=== PATIENT | male | born 1945 | race Caucasian/White ===

== ENCOUNTER 2016-11-12 13:30 | Inpatient (IN) | payer MEDICARE ==
--- NOTE | 2016-11-12 13:46 | Emergency Department Record ---
History of Present Illness - General Chief Complaint: Cough Stated Complaint: COUGHING WITH SOB, CONGESTION Time Seen by Provider: 11/12/16 13:45 Source: Patient Mode of Arrival: Ambulatory Limitations: No limitations - History of Present Illness Initial Comments: The patient is here due to a 7 day hx of progressive cough, congestion and SOB. He denies any fever, chills, CP or AP. The patient has a long hx fo COPD and has had similar problems in the past. He is not on home O2. MD Complaint: Cough, Nasal congestion, Rhinorrhea Onset/Timin -: Week(s) Consistency: Constant - Related Data Home Medications Medication Instructions Recorded Confirmed Last Taken Allopurinol [Zyloprim] 100 mg PO DAILY 09/29/15 11/12/16 11/12/16 Aspirin [Ecotrin] 81 mg PO DAILY 09/29/15 11/12/16 11/12/16 Diltiazem HCl [Cardizem] 120 mg PO DAILY 09/29/15 11/12/16 11/12/16 Furosemide [Lasix] 40 mg PO DAILY 09/29/15 11/12/16 11/11/16 Albuterol Sulfate [Ventolin Hfa] 1 - 2 puff IH .EVERY 4-6 HOURS PRN 11/08/1511/12/16 Ca/D3/Mag Ox/Zinc/Blending Machine Operator/Charbel/Bor 2 each PO DAILY 11/08/15 11/12/16 11/12/16 [Calcium 600-Vit D3-Min Chew Tb] Digoxin [Lanoxin] 125 mcg PO DAILY 11/08/15 11/12/16 11/12/16 Tramadol HCl 50 mg PO Q8H 11/12/16 11/12/16 11/12/16 Previous Rx's Medication Instructions Recorded Amiodarone HCl [Cordarone] 200 mg PO ONCE #30 tablet 11/11/15 Ipratropium/Albuterol [Duoneb] 3 ml IH Q4H #10 ampul.neb. 11/11/15 Rivaroxaban [Xarelto] 20 mg PO QPM #30 tablet 11/11/15 Allergies Allergy/AdvReac Type Severity Reaction Status Date / Time No Known Drug Allergies Allergy Verified 11/12/16 13:42 Travel Screening - Travel/Exposure Within Last 30 Days Have you traveled within the last 30 days?: No Review of Systems Constitutional: Reports: Malaise. Denies: Chills, Fever Eyes: Denies: Eye discharge ENT: Reports: Congestion Respiratory: Reports: Cough, Dyspnea, Wheezes. Denies: Hemoptysis, Stridor Cardiovascular: Denies: Chest pain Endocrine: Reports: Fatigue Gastrointestinal: Denies: Diarrhea, Vomiting Genitourinary: Denies: Dysuria Musculoskeletal: Denies: Back pain Skin: Denies: Bruising Past Medical History - SOCIAL HISTORY Smoking Status: Former smoker Alcohol Use: Heavy Alcohol Use Comment: 5 drinks/day Drug Use: None - RESPIRATORY Hx Respiratory Disorders: Yes Hx Bronchitis: Yes Hx COPD: Yes - CARDIOVASCULAR Hx Cardio Disorders: Yes Hx Abnormal EKG: Yes Hx CHF: Yes Hx Edema: Yes Hx Hypertension: Yes Hx Irregular Heartbeat: Yes (Afib) Hx Pacemaker/Defib: Yes - NEURO Hx Neuro Disorders: No - GI Hx GI Disorders: Yes Hx GI Bleed: Yes Hx Rectal Bleeding: Yes Hx Ulcer: Yes Comment:: increase due to edema - Hx Genitourinary Disorders: No - ENDOCRINE Hx Endocrine Disorders: No Hx Diabetes: No Hx Thyroid Disease: No - MUSCULOSKELETAL Hx Musculoskeletal Disorders: No - PSYCH Hx Psych Problems: No - HEMATOLOGY/ONCOLOGY Hx Hematology/Oncology Disorders: No Family Medical History Any Significant Family History?: Yes Hx Alcohol Use: Children Hx Dementia: Grandparents Hx Heart Disease: Father Hx HTN: Father Hx Resp Disorders: Children Hx Stroke: Mother Physical Exam - General General Appearance: Alert, Oriented x3, Cooperative, No acute distress - Head Head exam: Atraumatic, Normocephalic, Normal inspection - Eye Eye exam: Normal appearance, PERRL - ENT Throat exam: Normal inspection. negative: Tonsillar erythema, Tonsillar exudate - Neck Neck exam: Normal inspection, Full ROM. negative: Lymphadenopathy, Meningismus , Tenderness - Respiratory Respiratory exam: Decreased breath sounds, Rhonchi, Wheezes. negative: Normal lung sounds bilaterally, Accessory muscle use, Prolonged expiratory - Cardiovascular Cardiovascular Exam: Irregular rhythm. negative: Regular rate, Normal rhythm - GI/Abdominal GI/Abdominal exam: Soft, Normal bowel sounds. negative: Tenderness - Extremities Extremities exam: Normal inspection, Full ROM, Normal capillary refill. negative: Tenderness - Neurological Neurological exam: Alert, Normal gait, Oriented X3. negative: Abnormal gait, Motor sensory deficit - Psychiatric Psychiatric exam: negative: Agitated, Anxious, Depressed Course Vital Signs 11/12/16 13:33 Temperature 98.1 F Pulse Rate 78 Respiratory 28 H Rate Blood Pressure 126/69 Pulse Ox 80 L - Reevaluation(s) Reevaluation #1: The patient is doing well. He does feel better on the oxygen and after the breathing tx's. I did discuss the case with him and did recommend hospital admission. Due to his cardiac enzymes being borderline I did consult Dr. Griggs (Cardiology) and he does think the patient can stay here at [facility] for treatment and further cardiac lab testing. I then did discuss the case with Kianna (CLOTILDE) and she accepts the patient for Dr. Dupont. 11/12/16 15:12 Reevaluation #2: The patient is feeling better at this time. His RR is improved and his lungs have increased aeration. He is able to speak in full sentences and his biox is low 90's on 3 Liters of O2. 11/12/16 16:20 Medical Decision Making - Data Complexity MDM Data: Labs Ordered and/or Reviewed, X-Ray Ordered and/or Reviewed, EKG Ordered and/or Reviewed - Lab Data Result diagrams: 11/12/16 13:50 11/12/16 13:59 - EKG Data -: EKG Interpreted by Ri EKG: No Acute Changes, Unchanged From Previous - Radiology Data Radiology results: Report reviewed (CXR: COPD with possible L lung infiltrate.) Disposition Disposition: Admit Clinical Impression: COPD exacerbation, Chronic atrial fibrillation, Hypoxia Decision to Admit: Admit from ER Decision to Admit Date: 11/12/16 Decision to Admit Time: 15:14 Accepting Physician: Kiah Time Discussed w/Accepting Physician: 15:14 Time of Disposition: 15:14
[2016-11-12] MEDS ORDERED: IPRATROPIUM/ALBUTEROL (0.5MG/3MG) NEB INH ONE ×2 (13:53→15:10)
[2016-11-12] MEDS ORDERED: METHYLPREDNISOLONE PF 125MG/VIAL IVP ONE (13:55)
[2016-11-12] MEDS: ALBUTEROL SULFATE (0.083%) 2.5 MG/3 ML NEB INH ONE (14:01)
[2016-11-12 14:09] LABS: HEMATOCRIT 46.1 % (42.0-52.0); HEMOGLOBIN 15.2 gm/dl (14.0-18.0); MEAN CELL VOLUME 98.1 fl (81-97); MEAN CORPUSCULAR HEMOGLOBIN 32.3 pg (27-33); MEAN PLATELET VOLUME 10.6 fl (7.4-10.4); PLATELET COUNT 182 K/uL (130-400); RED CELL DISTRIBUTION WIDTH 13.9 % (11.5-14.5); WHITE BLOOD COUNT W/O DIFF 7.2 K/uL (4.2-12.2)
[2016-11-12 14:21] LABS: INR 1.12; PARTIAL THROMBOPLASTIN TIME 31.3 SECONDS (24.5-39.1); PROTHROMBIN TIME (PATIENT) 12.7 SECONDS (9.5-12.1)
[2016-11-12 14:22] LABS: ANION GAP 13.5 (7-16); BLOOD UREA NITROGEN 18 mg/dL (9-20); CARBON DIOXIDE 27.5 mmol/L (22-30); CREATINE PHOSPHOKINASE 400 U/L (55-170); CREATININE 1.1 mg/dL (0.66-1.25); EST GLOMERULAR FILTRATION RATE > 60 ml/min; GLUCOSE,RANDOM 154 mg/dL (70-110)
[2016-11-12 14:32] LABS: PLATELET ESTIMATE NORMAL (NORMAL)
[2016-11-12] MEDS ORDERED: LEVOFLOXACIN/D5W 750 MG in DEXTROSE 1 BAG IVPB ONE (14:33)
[2016-11-12 14:34] LABS: CKMB 9.8 ug/L (0-6)
[2016-11-12 14:35] LABS: TROPONIN I 0.176 ng/mL (0.00-0.034)
[2016-11-12] MEDS ORDERED: FUROSEMIDE IV 40MG/4ML VIAL IVP ONE (14:37)
[2016-11-12] MEDS ORDERED: ASPIRIN 325 MG TABLET PO ONE (15:23)
[2016-11-12] MEDS ORDERED: ACETAMINOPHEN 500 MG TABLET PO PRN (16:33)
[2016-11-12] MEDS: TRAMADOL HCL 50 MG TABLET PO SCH (16:33)
[2016-11-12] MEDS ORDERED: AMIODARONE HCL 200 MG TABLET PO SCH (16:33)
[2016-11-12] MEDS: RIVAROXABAN 20 MG TABLET PO SCH (18:05)
[2016-11-12] MEDS: IPRATROPIUM/ALBUTEROL (0.5MG/3MG) NEB INH PRN (21:57)
[2016-11-12 22:38] LABS: CKMB 9.9 ug/L (0-6); TROPONIN I 0.106 ng/mL (0.00-0.034)
[2016-11-12 23:12] LABS: CKMB RELATIVE INDEX 2.4 % (0-4)
[2016-11-13] MEDS: IPRATROPIUM/ALBUTEROL (0.5MG/3MG) NEB INH PRN ×5 (01:45→20:38)
[2016-11-13] MEDS: TRAMADOL HCL 50 MG TABLET PO SCH ×2 (05:00→10:16)
[2016-11-13] MEDS: ALBUTEROL SULFATE (0.083%) 2.5 MG/3 ML NEB INH ONE ×2 (06:12→06:13)
[2016-11-13 06:54] LABS: CKMB 7.9 ug/L (0-6)
--- NOTE | 2016-11-13 07:28 | RADIOLOGY REPORT ---
EXAM: CHEST, TWO VIEWS HISTORY: COUGH. TECHNIQUE: Two views of the chest were obtained. Comparison: 06/30/16. FINDINGS: There is a single lead left chest pacemaker. There is stable appearance of the cardiomediastinal silhouette. Coarsened interstitial markings are present within the lungs likely related to scarring/fibrosis. The lungs are hyperaerated consistent with emphysematous change/COPD. There does appear to be subtle interval increased streaky opacities within the left lung base which could relate to atelectasis or developing infiltrate. Mild degenerative changes in the thoracic spine. IMPRESSION: 1. SUGGESTION OF MILD LEFT BASILAR ATELECTASIS OR DEVELOPING INFILTRATE. 2. COPD. JOB NUMBER: [id number] MTDD
[2016-11-13] MEDS ORDERED: TRAMADOL HCL 50 MG TABLET PO PRN (09:10)
--- NOTE | 2016-11-13 09:50 | History & Physical ---
History of Present Illness - Date of Service Date of Service for History & Physical: 11/13/16 - History of Present Illness Admitting Diagnosis: 1. COPD Exacerbation with Hypoxia History of Present Illness: 70yo male presented to ED with 15 day history of worsening SOB with increasing cough. Patient has a past medical history of COPD, CHF, chronic atrial fibrillation, pacemaker, and HTN. Patient presented to the ED last night with increasing SOB. He says this gradually started about 2 wees ago but really progressed over the past 24 hours. He is coughing up thick sputum which he says is actually baseline for him. He reported some chills but no fever. He decided to come to the ED because he began having a difficult time breathing. While in the ED, patient was found to have a room air oxygen saturation of 80%. He was started on supplemental oxygen at 3L with improvements to 90%. He received 3 duoneb breathing treatments with improvement in his TONA. He had a CXR that showed a mid left basilar atelectasis vs infiltrate along with emphysematous changes. EKG showed atrial fibrillation with ventricular rate of 72bpm along with RBB block which was unchanged from previous EKG. CPK, cKMB and troponin returned elevated but patient was asymptomatic. Dr. Griggs was contacted and recommended trending the labs with transfer if further elevation. Patient was started on levaquin 500mg IV, given solumedrol 125mg IV and admitted for COPD exacerbation. 11/13/16- Patient reports feeling much better today. He is still feeling more SOB than baseline but says it has improved significantly since he arrived. He reports about baseline cough and sputum production. He continues to deny any chest pain or pressure. He has been following with Dr. Thacker of [facility] cardiology and had a pacemaker placed this year and was started on intermodal customer service anticoagulation for chronic afib. He denies any swelling in his extremities. PCP: Julio Travel Screening - Travel/Exposure Within Last 30 Days Have you traveled within the last 30 days?: No - Travel/Exposure Within Last Year Have you traveled outside the [place] in the last year?: No - Additonal Travel Details Have you been exposed to anyone with a communicable illness?: No - Travel Symptoms Symptom Screening: None Review of Systems Constitutional: Reports: Malaise. Denies: Chills, Fever Eyes: Denies: Eye discharge ENT: Reports: Congestion Respiratory: Reports: Cough, Dyspnea, Wheezes. Denies: Hemoptysis, Stridor Cardiovascular: Denies: Chest pain Endocrine: Reports: Fatigue Gastrointestinal: Denies: Diarrhea, Vomiting Genitourinary: Denies: Dysuria Musculoskeletal: Denies: Back pain Skin: Denies: Bruising Past Medical History - SOCIAL HISTORY Smoking Status: Former smoker Alcohol Use: Heavy Alcohol Use Comment: 5 drinks/day Drug Use: None - RESPIRATORY Hx Respiratory Disorders: Yes Hx Bronchitis: Yes Hx COPD: Yes - CARDIOVASCULAR Hx Cardio Disorders: Yes Hx Abnormal EKG: Yes Hx CHF: Yes Hx Edema: Yes Hx Hypertension: Yes Hx Irregular Heartbeat: Yes (Afib) Hx Pacemaker/Defib: Yes - NEURO Hx Neuro Disorders: No - GI Hx GI Disorders: Yes Hx GI Bleed: Yes Hx Rectal Bleeding: Yes Hx Ulcer: Yes Comment:: increase due to edema - Hx Genitourinary Disorders: No - ENDOCRINE Hx Endocrine Disorders: No Hx Diabetes: No Hx Thyroid Disease: No - MUSCULOSKELETAL Hx Musculoskeletal Disorders: No - PSYCH Hx Psych Problems: No - HEMATOLOGY/ONCOLOGY Hx Hematology/Oncology Disorders: No Family Medical History Any Significant Family History?: Yes Hx Alcohol Use: Children Hx Dementia: Grandparents Hx Heart Disease: Father Hx HTN: Father Hx Resp Disorders: Children Hx Stroke: Mother H&P Meds/Allergies - Allergies Allergies: Allergies Allergy/AdvReac Type Severity Reaction Status Date / Time No Known Drug Allergies Allergy Verified 11/12/16 13:42 - Home Medications Home Medications Medication Instructions Recorded Confirmed Last Taken Allopurinol [Zyloprim] 100 mg PO DAILY 09/29/15 11/12/16 11/12/16 Aspirin [Ecotrin] 81 mg PO DAILY 09/29/15 11/12/16 11/12/16 Diltiazem HCl [Cardizem] 120 mg PO DAILY 09/29/15 11/12/16 11/12/16 Furosemide [Lasix] 40 mg PO DAILY 09/29/15 11/12/16 11/11/16 Albuterol Sulfate [Ventolin Hfa] 1 - 2 puff IH .EVERY 4-6 HOURS PRN 11/08/1511/12/16 Ca/D3/Mag Ox/Zinc/Aircraft Servicer/Charbel/Bor 2 each PO DAILY 11/08/15 11/12/16 11/12/16 [Calcium 600-Vit D3-Min Chew Tb] Digoxin [Lanoxin] 125 mcg PO DAILY 11/08/15 11/12/16 11/12/16 Tramadol HCl 50 mg PO TID PRN 11/12/16 11/13/16 11/12/16 Previous Rx's Medication Instructions Recorded Amiodarone HCl [Cordarone] 200 mg PO ONCE #30 tablet 11/11/15 Ipratropium/Albuterol [Duoneb] 3 ml IH Q4H #10 ampul.neb. 11/11/15 Rivaroxaban [Xarelto] 20 mg PO QPM #30 tablet 11/11/15 - Active Medications Active Medications: Current Medications Acetaminophen (Tylenol 500mg Tab) 500 mg PO Q6H PRN PRN Reason: PAIN/TEMP Albuterol/Ipratropium (Duoneb) 3 ml INH RESP.Q4H PRN PRN Reason: Wheezing Last Admin: 11/13/16 06:15 Dose: 3 ml Allopurinol (Zyloprim) 100 mg PO DAILY [facility] Amiodarone HCl (Pacerone) 200 mg PO ONCE [facility] Aspirin (Ecotrin (Ec)) 81 mg PO DAILY [facility] Digoxin (Lanoxin) 125 mcg PO DAILY [facility] Diltiazem HCl (Cardizem Cd) 120 mg PO DAILY [facility] Furosemide (Lasix) 40 mg PO DAILY [facility] Levofloxacin/Dextrose 500 mg/ (Glucose) 100 mls @ 125 mls/hr IVPB Q24H [facility] Stop: 11/18/16 15:31 Methylprednisolone Sodium Succinate (Solu-Medrol) 60 mg IVP DAILY [facility] Rivaroxaban (Xarelto) 20 mg PO QPM [facility] Last Admin: 11/12/16 18:05 Dose: 20 mg Tramadol HCl (Ultram) 50 mg PO TID PRN PRN Reason: Pain - General Physical Exam - Vital Signs Vital Signs: Vital Signs - Last 24 Hrs Temp Pulse Pulse Resp BP Pulse Ox 11/13/16 08:00 98.3 F 80 22 118/71 93 L 11/13/16 06:16 66 24 93 L 11/13/16 04:00 95.0 F L 77 28 H 117/65 97 11/13/16 01:46 80 24 94 L 11/13/16 00:50 96.9 F L 58 L 28 H 117/67 92 L 01/15/17 21:58 70 26 H 94 L 11/12/16 21:00 28 H 11/12/16 18:33 97.7 F 86 44 H 127/71 90 L 11/12/16 17:07 77 44 H 11/12/16 16:33 98.3 F 77 44 H 131/72 90 L - General General Appearance: Alert, Oriented x3, Cooperative, No acute distress Limitations: No limitations - Head Head exam: Atraumatic, Normocephalic, Normal inspection - Eye Eye exam: Normal appearance, PERRL - ENT Throat exam: Normal inspection. negative: Tonsillar erythema, Tonsillar exudate - Neck Neck exam: Normal inspection, Full ROM. negative: Lymphadenopathy, Meningismus , Tenderness - Respiratory Respiratory exam: Decreased breath sounds (throughout). negative: Normal lung sounds bilaterally, Accessory muscle use, Prolonged expiratory, Respiratory distress, Wheezes - Cardiovascular Cardiovascular Exam: Regular rate, Irregular rhythm, Other (pacemaker). negative: Normal rhythm - GI/Abdominal GI/Abdominal exam: Soft, Normal bowel sounds. negative: Tenderness - Extremities Extremities exam: Normal inspection, Full ROM, Normal capillary refill. negative: Tenderness - Neurological Neurological exam: Alert, Normal gait, Oriented X3. negative: Abnormal gait, Motor sensory deficit - Psychiatric Psychiatric exam: negative: Agitated, Anxious, Depressed Results - Labs Result Diagrams: 11/13/16 06:15 11/13/16 06:15 Labs Last 24 Hours: Laboratory Results - last 24 hr 11/12/16 11/12/16 11/13/16 22:00 22:05 06:15 Creatine Kinase 400 H 261 H CK-MB (CK-2) Cancelled 9.9 H 7.9 H CK-MB (CK-2) Rel Index 2.40 3.00 Troponin I 0.106 H 11/13/16 06:15 Creatine Kinase CK-MB (CK-2) CK-MB (CK-2) Rel Index Troponin I 0.075 H - Imaging and Cardiology Chest x-ray Status: Report reviewed (mi left basilar atelectasis vs infiltrate) VTE H&P Assessment - Risk for VTE Risk for VTE: No Risk Level: Low Risk Assessment Date: 11/13/16 Risk Assessment Time: 22:37 VTE Orders Placed or Will Be Placed: No VTE Reason for No Prophylaxis: Not Indicated (patient on intermodal customer service anticoagulation therapy) Plan - Inpatient Certification Inpatient Certification: Admit to inpatient care: Based on my medical assessment, after consideration of patient's risk factors (age, co-morbidities and patient presenting symptoms and acuity), I expect that this patient will remain in the hospital greater than or equal to two midnights and that the services needed warrant inpatient care because: Patient Risk Factors: [age, COPD exacerbation, chronic atrial fibrillation] Estimated length of stay: [48-72 hourse] The patient may reasonably be expected to be discharged or transferred to a hospital within 96 hours after admission to [facility]. Services needed: [IV antibiotics, IV steroids] Post hospital care (if known): [] I certify that my determination is in accordance with my understanding of Medicare requirements for reasonable and necessary inpatient services. 11/13/16 14:44 - Detailed Diagnosis and Plan (1) COPD exacerbation Current Visit: Yes Status: Acute Base Code: J44.1 - CHRONIC OBSTRUCTIVE PULMONARY DISEASE W (ACUTE) EXACERBATION Priority: High Comment: 11/13/16- CXR showed mid left basilar atelectasis vs infiltrate and emphysematous changes. WBC count wnl range. Patient is afebrile. No blood cultures obtained prior to abx intitation in ED. -Will continue levaquin 500mg IV q24H for coverage of possible infiltrate seen on CXR -Continue solumedrol 60mg IV daily -continue supplemental O2 -Repeat labs qam (2) Hypoxia Current Visit: Yes Status: Acute Base Code: R09.02 - HYPOXEMIA Comment: 11/13/16- Oxygen saturation of 80% on RA upon presentation improved to 93% on 2L. Most likely cause is COPD exacerbation. Patient is on alf anticoagulation therapy for afib so PE is unlikely. -continue duoneb q4H prn SOB -continue supplemental Oxygen via NC to keep sats >92% -Will likely need home oxygen qualifier closer to discharge (3) Elevation of cardiac enzymes Current Visit: Yes Status: Acute Base Code: R74.8 - ABNORMAL LEVELS OF OTHER SERUM ENZYMES Comment: 11/13/16- Improving. Dr. Griggs was contacted while patient was in ED. he did not feel elevated CE were due to myocardial infarct and recommending trending the labs with transfer if any worsening. Patient remains asymtpomatic, denying any chest pain. His Troponin is down from 0.176 to 0.06 today. Repeat EKG this morning was unchanged from previous. -Will get one more set of labs tomorrow morning -Patient will likely need outpatient cardiology follow up with Dr. Thacker (4) Chronic atrial fibrillation Current Visit: Yes Status: Acute Base Code: I48.2 - CHRONIC ATRIAL FIBRILLATION Comment: 11/13/16-stable. Patient has pacemaker placed and is on alf anticoagulation therapy. -Will continue home medications (5) Full code status Current Visit: Yes Status: Acute Base Code: Z78.9 - OTHER SPECIFIED HEALTH STATUS Comment: 11/13/16- patient is full code (6) DVT prophylaxis Current Visit: No Status: Acute Base Code: [id number] - Comment: 11/13/16- Patient currently on xarelto 20mg qhs -will continue xarelto 20mg qhs -will add SCD's while in bed -encourage ambulation as tolerating
[2016-11-13 10:01] LABS: HEMATOCRIT 43.7 % (42.0-52.0); HEMOGLOBIN 14.7 gm/dl (14.0-18.0); MEAN CELL VOLUME 99.1 fl (81-97); MEAN CORPUSCULAR HEMOGLOBIN 33.3 pg (27-33); MEAN CORPUSCULAR HGB CONC 33.6 g/dl (32-36); PLATELET COUNT 178 K/uL (130-400); RED BLOOD COUNT 4.41 M/uL (4.40-5.70); RED CELL DISTRIBUTION WIDTH 13.8 % (11.5-14.5); WHITE BLOOD COUNT W/O DIFF 7.4 K/uL (4.2-12.2)
[2016-11-13 10:06] LABS: ALB/GLOB RATIO 1.3 (1.1-1.8); ALKALINE PHOSPHATASE 68 U/L (38-126); ALT/SGPT 57 U/L (21-72); ANION GAP 14.6 (7-16); AST/SGOT 60 U/L (17-59); BLOOD UREA NITROGEN 23 mg/dL (9-20); CARBON DIOXIDE 28.4 mmol/L (22-30); EST GLOMERULAR FILTRATION RATE > 60 ml/min; GLUCOSE,RANDOM 188 mg/dL (70-110); TOTAL PROTEIN 7.1 gm/dL (6.3-8.2)
[2016-11-13] MEDS: ALLOPURINOL 100 MG TAB PO SCH (10:20)
[2016-11-13] MEDS: DIGOXIN 125 MCG TABLET PO SCH (10:21)
[2016-11-13] MEDS: ASPIRIN 81 MG TABEC PO SCH (10:21)
[2016-11-13] MEDS: DILTIAZEM HCL 120 MG ER CAPSULE PO SCH (10:21)
[2016-11-13] MEDS: FUROSEMIDE 40 MG TABLET PO SCH (10:21)
[2016-11-13] MEDS: METHYLPREDNISOLONE PF 125MG/VIAL IVP SCH (10:22)
[2016-11-13] MEDS: AMIODARONE HCL 200 MG TABLET PO SCH (12:05)
[2016-11-13] MEDS: LEVOFLOXACIN 500MG IVPB 500 MG in DEXTROSE 1 BAG IVPB SCH (16:54)
[2016-11-13] MEDS: RIVAROXABAN 20 MG TABLET PO SCH (16:57)
[2016-11-14] MEDS: IPRATROPIUM/ALBUTEROL (0.5MG/3MG) NEB INH PRN ×4 (06:19→21:28)
[2016-11-14 07:01] LABS: ALB/GLOB RATIO 1.2 (1.1-1.8); ALBUMIN 3.5 gm/dL (3.5-5.0); BLOOD UREA NITROGEN 26 mg/dL (9-20); CREATININE 0.9 mg/dL (0.66-1.25); EST GLOMERULAR FILTRATION RATE > 60 ml/min; GLUCOSE,RANDOM 144 mg/dL (70-110); TOTAL PROTEIN 6.5 gm/dL (6.3-8.2)
[2016-11-14 07:02] LABS: ALKALINE PHOSPHATASE 59 U/L (38-126); ALT/SGPT 49 U/L (21-72); AST/SGOT 38 U/L (17-59); TROPONIN I 0.061 ng/mL (0.00-0.034)
[2016-11-14 07:11] LABS: HEMATOCRIT 43.6 % (42.0-52.0); MEAN CELL VOLUME 100.5 fl (81-97); MEAN CORPUSCULAR HGB CONC 32.1 g/dl (32-36); MEAN PLATELET VOLUME 10.8 fl (7.4-10.4); PLATELET COUNT 215 K/uL (130-400); RED BLOOD COUNT 4.34 M/uL (4.40-5.70); RED CELL DISTRIBUTION WIDTH 13.8 % (11.5-14.5)
[2016-11-14 07:17] LABS: MEAN CORPUSCULAR HEMOGLOBIN 32.2 pg (27-33)
[2016-11-14 07:40] LABS: PLATELET ESTIMATE NORMAL (NORMAL)
[2016-11-14] MEDS: ALLOPURINOL 100 MG TAB PO SCH (08:59)
[2016-11-14] MEDS: DIGOXIN 125 MCG TABLET PO SCH (08:59)
[2016-11-14] MEDS: AMIODARONE HCL 200 MG TABLET PO SCH (08:59)
[2016-11-14] MEDS: METHYLPREDNISOLONE PF 125MG/VIAL IVP SCH ×2 (09:00→18:00)
[2016-11-14] MEDS: ASPIRIN 81 MG TABEC PO SCH (09:01)
[2016-11-14] MEDS: DILTIAZEM HCL 120 MG ER CAPSULE PO SCH (09:01)
[2016-11-14] MEDS: FUROSEMIDE 40 MG TABLET PO SCH (09:01)
[2016-11-14] MEDS ORDERED: SODIUM CHLORIDE 7% FOR INHALATION 4 ML NEB INH ONE (10:30)
[2016-11-14] MEDS: LEVOFLOXACIN 500MG IVPB 500 MG in DEXTROSE 1 BAG IVPB SCH (15:44)
[2016-11-14] MEDS: RIVAROXABAN 20 MG TABLET PO SCH (17:59)
[2016-11-14] MEDS: SODIUM CHLORIDE 7% FOR INHALATION 4 ML NEB INH SCH (21:28)
[2016-11-15] MEDS: METHYLPREDNISOLONE PF 125MG/VIAL IVP SCH (05:41)
[2016-11-15] MEDS ORDERED: 0.9 % SODIUM CHLORIDE 10ML SYR IVP PRN (05:43)
[2016-11-15] MEDS: IPRATROPIUM/ALBUTEROL (0.5MG/3MG) NEB INH PRN ×2 (05:54→19:11)
[2016-11-15] MEDS: SODIUM CHLORIDE 7% FOR INHALATION 4 ML NEB INH SCH ×3 (05:54→19:15)
[2016-11-15 06:18] LABS: BASO % 0.2 % (0-6); HEMATOCRIT 42.6 % (42.0-52.0); HEMOGLOBIN 14.1 gm/dl (14.0-18.0); LYMPH % 5.3 % (16-45); MEAN CELL VOLUME 99.8 fl (81-97); MEAN CORPUSCULAR HGB CONC 33.1 g/dl (32-36); MEAN PLATELET VOLUME 10.6 fl (7.4-10.4); MONO % 7.3 % (0-9); PLATELET COUNT 232 K/uL (130-400); RED BLOOD COUNT 4.27 M/uL (4.40-5.70); RED CELL DISTRIBUTION WIDTH 13.8 % (11.5-14.5); WHITE BLOOD COUNT W/O DIFF 13.1 K/uL (4.2-12.2)
[2016-11-15 06:30] LABS: ALB/GLOB RATIO 1.3 (1.1-1.8); ALBUMIN 3.7 gm/dL (3.5-5.0); ALKALINE PHOSPHATASE 53 U/L (38-126); ALT/SGPT 55 U/L (21-72); ANION GAP 10.1 (7-16); AST/SGOT 34 U/L (17-59); BILIRUBIN,TOTAL 0.42 mg/dL (0.2-1.3); BLOOD UREA NITROGEN 33 mg/dL (9-20); CARBON DIOXIDE 30.9 mmol/L (22-30); CREATININE 0.9 mg/dL (0.66-1.25); EST GLOMERULAR FILTRATION RATE > 60 ml/min; GLUCOSE,RANDOM 148 mg/dL (70-110); TOTAL PROTEIN 6.5 gm/dL (6.3-8.2)
[2016-11-15] MEDS: ASPIRIN 81 MG TABEC PO SCH (10:22)
[2016-11-15] MEDS: DILTIAZEM HCL 120 MG ER CAPSULE PO SCH (10:22)
[2016-11-15] MEDS: ALLOPURINOL 100 MG TAB PO SCH (10:22)
[2016-11-15] MEDS: AMIODARONE HCL 200 MG TABLET PO SCH (10:22)
[2016-11-15] MEDS: DIGOXIN 125 MCG TABLET PO SCH (10:23)
[2016-11-15] MEDS ORDERED: PREDNISONE 20 MG TAB PO ONE (13:21)
[2016-11-15] MEDS ORDERED: METHYLPREDNISOLONE PF 125MG/VIAL IVP SCH (14:00)
[2016-11-15] MEDS: LEVOFLOXACIN 500MG IVPB 500 MG in DEXTROSE 1 BAG IVPB SCH (15:10)
[2016-11-15] MEDS: RIVAROXABAN 20 MG TABLET PO SCH (17:19)
[2016-11-15] MEDS: IPRATROPIUM/ALBUTEROL (0.5MG/3MG) NEB INH SCH (23:00)
[2016-11-16] MEDS: SODIUM CHLORIDE 7% FOR INHALATION 4 ML NEB INH SCH ×2 (04:08→10:10)
[2016-11-16] MEDS: IPRATROPIUM/ALBUTEROL (0.5MG/3MG) NEB INH SCH ×3 (05:39→17:16)
[2016-11-16] MEDS ORDERED: LEVOFLOXACIN 500 MG TABLET PO SCH (06:00)
[2016-11-16 06:41] LABS: BLOOD UREA NITROGEN 31 mg/dL (9-20); CREATININE 0.9 mg/dL (0.66-1.25); EST GLOMERULAR FILTRATION RATE > 60 ml/min; GLUCOSE,RANDOM 126 mg/dL (70-110)
[2016-11-16 06:42] LABS: ANION GAP 11.8 (7-16); CARBON DIOXIDE 29.2 mmol/L (22-30)
--- NOTE | 2016-11-16 08:24 | Discharge Note ---
Discharge Note - Date Date of Discharge Note: 11/16/16 Disposition: Home, Self-Care Condition: (1) Good Additional Instructions: FOLLOW UP WITH dR. Corral IN 7-10 DAYS levaquin 500 mg daily for 7 days prednisone taper starting at 40 mg per day for 3 days than 30 mg per day for 3 days than 20 mg per day for 3 days than 10 mg per day for 3 days.(using 10 mg pills) oxygen therapy at home salin neb twice a day to help bring up mucous duo neb every 4 hours while awake Prescriptions: Ipratropium/Albuterol [Duoneb] 3 ml INH RESP.Q4H.WA #120 ampul.neb Ipratropium/Albuterol [Duoneb] 3 ml IH Q4H #120 ampul.neb. Sodium Chloride 7% For INH [Hyper-Shawn] 4 ml INH BID #60 vial.neb Levofloxacin [Levaquin] 500 mg PO DAILYFLUOR #7 tablet Prednisone [Prednisone 10Mg] 10 mg PO ASDIR #30 tab Forms: Patient Portal Access
[2016-11-16] MEDS ORDERED: PREDNISONE 20 MG TAB PO SCH (08:30)
[2016-11-16] MEDS: AMIODARONE HCL 200 MG TABLET PO SCH (10:19)
[2016-11-16] MEDS: DILTIAZEM HCL 120 MG ER CAPSULE PO SCH (10:19)
[2016-11-16] MEDS: DIGOXIN 125 MCG TABLET PO SCH (10:19)
[2016-11-16] MEDS: ALLOPURINOL 100 MG TAB PO SCH (10:19)
[2016-11-16] MEDS: ASPIRIN 81 MG TABEC PO SCH (10:20)
--- NOTE | 2016-11-16 15:09 | Discharge Summary ---
DATE OF DISCHARGE: 11/16/16 AT 8:00 A.M. DISCHARGE DIAGNOSES: 1. ACUTE BRONCHITIS. 2. ACUTE EXACERBATION OF COPD. 3. HYPOXIA MOST LIKELY REQUIRING HOME OXYGEN. WE WILL SEND HIM HOME WITH OXYGEN THEY ARE GOING TO SEE IF HE QUALIFIES ON THE DAY OF DISCHARGE. 4. DEHYDRATION. 5. CHRONIC ATRIAL FIBRILLATION. 6. CHRONICALLY ELEVATED TROPONIN-I. ATTENDING PHYSICIAN: GRANT STOVER D.O. REASON FOR HOSPITALIZATION: DYSPNEA, COUGH, AND CONGESTION: The patient was progressively worse over seven days prior to coming to the Admission with congestion, cough, and difficulty breathing. He has had a long history of COPD, however, has never had to use oxygen at home. He was admitted to the hospital by Dr. Cross, initially seen by Kianna Yoo and Dr. Sharif and then I took over on 11/14/16 because of the change of coverage. SIGNIFICANT FINDINGS: Chest x-ray showing COPD, mild left basilar atelectasis or developing infiltrate. EKG showing atrial fibrillation, right bundle branch block, and nonspecific ST/T wave changes, occasional paced rhythm. He has a pacemaker and he is on Amiodarone. LABORATORY: His initial WBC was 7,200, hemoglobin was 15.2, his hemoglobin dropped down to 14.1 on discharge, platelet counts are normal at 232, segs are 82, lymphs are 6, monos are 5. His last set of electrolytes; potassium is 4.6, BUN is 31, creatinine is 0.9, sugar has gone up a little bit because of the Prednisone and Solu-Medrol therapy. His troponin-I's were a little bit high when he came into the E.R. at 0.106. Dr. Juan M Johnston was consulted and he said just trend them if they go down and not to worry but otherwise if they go up to call him if they did trend down. His CK-MB was a little bit elevated but the index was normal and his pro-natriuretic peptide was 3,950. Digoxin level was 1.2 on the day of discharge. THERAPY PROVIDED: The patient was placed on IV Levaquin, given DuoNeb treatments every four hours, cautious hydration, oxygen therapy, and IV Solu- Medrol switched over to oral Prednisone going home on Prednisone at 40 mg a day for three days, then 30 mg a day for three days, then 20 mg a day for three days , then 10 mg a day for three days. 10 mg pills will be dispensed. HOSPITAL COURSE: Gradually improved but is requiring oxygen therapy. CONDITION AT DISCHARGE: Improved but guarded because of his severe COPD, atrial fibrillation, and comorbid conditions. DISCHARGE INSTRUCTIONS: Follow-up with Dr. Fay in 7-10 days. Oxygen therapy after he qualifies. That will be set up on the day of discharge. Tramadol 50 mg every eight hours prn. He has not been using that in the hospital. DuoNeb every four hours while awake. Diltiazem 120 mg every day. Xarelto 20 mg at bedtime. We will stop the Lasix. Digoxin 0.125 every day. Aspirin 81 mg every day. Amiodarone 200 mg every day. Allopurinol 100 mg every day. Levaquin 500 mg every day for seven days. Hyper-Shawn 4 mL of 7% saline solution nebulized twice a day to help mobilize the mucus in his lungs. This is a new script for him. Prednisone 10 mg pills, four pills a day for three days, then three pills a day for three days, two pills a day for three days, then one pill a day for three days. Grant Stover D.O. Date & Time cc: Dr. Fay JOB NUMBER: [id number] MTDD
== END 2016-11-16 14:00 | disposition home or self-care (01) | DRG 192 ==
LOC: ER 13:30 → MEDSURG 16:18
PROVIDERS: ADMIT Family Medicine; ATTEND Emergency Medicine
DX: J44.0 Chronic obstructive pulmonary disease with (acute) lower respiratory infection (principal); J20.9 Acute bronchitis, unspecified; J44.1 Chronic obstructive pulmonary disease with (acute) exacerbation; R09.02 Hypoxemia; R74.8 Abnormal levels of other serum enzymes; I48.2 Chronic atrial fibrillation; Z78.9 Other specified health status; Z95.0 Presence of cardiac pacemaker; E86.0 Dehydration
CPT/HCPCS: 93041; 99285 ×2; 94760; 96365; 82550; 85730; 85610; 82553; 84484; 80048; 80162; 85027; 83880; 71020; J1956; 80053; 93005; 93010; 94620; 94640; 94761; 99223; 99233; 99239; J1940; J2930; J7512; J7613

== ENCOUNTER 2017-02-12 18:10 | Emergency (ER) | payer MEDICARE ==
[2017-02-12] MEDS ORDERED: IPRATROPIUM/ALBUTEROL (0.5MG/3MG) NEB INH ONE ×2 (18:19→18:20)
[2017-02-12] MEDS ORDERED: METHYLPREDNISOLONE PF 125MG/VIAL IVP ONE (18:21)
--- NOTE | 2017-02-12 18:27 | Emergency Department Record ---
History of Present Illness - General Chief Complaint: Shortness of breath Stated Complaint: TONA/COPD Time Seen by Provider: 02/12/17 18:20 Source: Patient Mode of Arrival: Wheelchair Limitations: Physical limitation (Dyspnea) - History of Present Illness Initial Comments: 71 yo male with a history of COPD presents to ED in respiratory distress, unable to speak. Patient's reports progressively worsening symptoms for the past 3-4 days, productive cough symptoms, subjective fever. reports history of atrial fibrillation and "bad heart valve". Patient is on Xarelto for his atrial fibrillation, s/p pacemaker. MD Complaint: Shortness of breath Onset/Timin -: Days(s) Severity: Severe Consistency: Constant Improves With: Nothing Worsens With: Nothing Known History Of: COPD Context: Recent URI Treatments Prior to Arrival: Bronchodilator - Related Data Home Oxygen Therapy: No (only at night) Home Medications Medication Instructions Recorded Confirmed Last Taken Allopurinol [Zyloprim] 100 mg PO DAILY 09/29/15 02/12/17 11/12/16 Aspirin [Ecotrin] 81 mg PO DAILY 09/29/15 02/12/17 11/12/16 Diltiazem HCl [Cardizem] 120 mg PO DAILY 09/29/15 02/12/17 11/12/16 Albuterol Sulfate [Ventolin Hfa] 1 - 2 puff IH .EVERY 4-6 HOURS PRN 11/08/1511/12/16 Ca/D3/Mag Ox/Zinc/Funeral Attendant/Charbel/Bor 2 each PO DAILY 11/08/15 02/12/17 11/12/16 [Calcium 600-Vit D3-Min Chew Tb] Digoxin [Lanoxin] 125 mcg PO DAILY 11/08/15 02/12/17 11/12/16 Tramadol HCl 50 mg PO TID PRN 11/12/16 02/12/17 11/12/16 Previous Rx's Medication Instructions Recorded Amiodarone HCl [Cordarone] 200 mg PO ONCE #30 tablet 11/11/15 Rivaroxaban [Xarelto] 20 mg PO QPM #30 tablet 11/11/15 Acetaminophen [Tylenol 500Mg Tab] 500 mg PO Q6H PRN #0 tablet 11/16/16 Aspirin Enteric-Coated [Ecotrin 81 mg PO DAILY tabec 01/19/17 (EC)] Ipratropium/Albuterol [Duoneb] 3 ml IH Q4H #120 ampul.neb. 11/16/16 Ipratropium/Albuterol [Duoneb] 3 ml INH RESP.Q4H.WA #120 ampul.neb 11/16/16 Sodium Chloride 7% For INH 4 ml INH BID #60 vial.neb 11/16/16 [Hyper-Shawn] Allergies Allergy/AdvReac Type Severity Reaction Status Date / Time No Known Drug Allergies Allergy Verified 02/12/17 18:27 Review of Systems ROS unobtainable: Other (due to respiratory distress) Past Medical History - SOCIAL HISTORY Smoking Status: Former smoker Alcohol Use Comment: 5 drinks/day Drug Use: None - RESPIRATORY Hx Respiratory Disorders: Yes Hx Bronchitis: Yes Hx COPD: Yes - CARDIOVASCULAR Hx Cardio Disorders: Yes Hx Abnormal EKG: Yes Hx CHF: Yes Hx Edema: Yes Hx Hypertension: Yes Hx Irregular Heartbeat: Yes (Afib) Hx Pacemaker/Defib: Yes - NEURO Hx Neuro Disorders: No - GI Hx GI Disorders: Yes Hx GI Bleed: Yes Hx Rectal Bleeding: Yes Hx Ulcer: Yes Comment:: increase due to edema - Hx Genitourinary Disorders: No - ENDOCRINE Hx Endocrine Disorders: No Hx Diabetes: No Hx Thyroid Disease: No - MUSCULOSKELETAL Hx Musculoskeletal Disorders: No - PSYCH Hx Psych Problems: No - HEMATOLOGY/ONCOLOGY Hx Hematology/Oncology Disorders: No Family Medical History Hx Alcohol Use: Children Hx Dementia: Grandparents Hx Heart Disease: Father Hx HTN: Father Hx Resp Disorders: Children Hx Stroke: Mother Physical Exam - General General Appearance: Alert, Oriented x3, Cooperative, Severe distress, Other ( Cybnaotic appearing) Limitations: Physical limitation (Dyspnea) - Head Head exam: Atraumatic, Normocephalic, Normal inspection Head exam detail: negative: Abrasion, Contusion, Virk's sign, General tenderness, Hematoma, Laceration - Eye Eye exam: Normal appearance. negative: Conjunctival injection, Periorbital swelling, Periorbital tenderness, Scleral icterus - ENT Ear exam: negative: Auricular hematoma, Auricular trauma Nasal Exam: negative: Active bleeding, Discharge, Dried blood, Foreign body Mouth exam: negative: Drooling, Laceration, Muffled voice, Tongue elevation - Neck Neck exam: Normal inspection. negative: Meningismus, Tenderness - Respiratory Respiratory exam: Decreased breath sounds, Respiratory distress, Wheezes - Cardiovascular Cardiovascular Exam: Regular rate, Normal rhythm, Normal heart sounds - GI/Abdominal GI/Abdominal exam: Soft. negative: Rebound, Rigid, Tenderness - Rectal Rectal exam: Deferred - exam: Deferred - Extremities Extremities exam: Other (cyanosis to the upper extremities bialterally). negative: Calf tenderness, Pedal edema, Tenderness - Back Back exam: Denies: CVA tenderness (R), CVA tenderness (L) - Neurological Neurological exam: Alert, Oriented X3 - Psychiatric Psychiatric exam: Anxious - Skin Skin exam: Normal color. negative: Abrasion Type of lesion: negative: abrasion Course - Reevaluation(s) Reevaluation #1: 02/12/17 18:35 Patient reassessed following double-duoneb, Biox 28% on Venti mask, RR 28-30. Solumedrol has been given also. Will continue to monitor. Reevaluation #2: 02/12/17 19:03 CXR: No acute process Bipap placed on the patient to reduce the patient's work of breathing. Will continue to monitor. Reevaluation #3: 02/12/17 19:06 EKG: Atrial fibrillation 93 Normal axis non-specific ST-T wave changes present Reevaluation #4: 02/12/17 19:29 Repeat EKG: Atrial Fibrillation 93 Normal axis, irregular R-R intervals, Nonspecific ST-T wave changes. Dr. Alvarez paged for transfer to ICU. Reevaluation #5: 02/12/17 19:40 Case was discussed with Dr. Alvarez, will accept transfer. Patient is tolerating the Bipap well at this time, will order Zithromax. Medical Decision Making - Lab Data Result diagrams: 02/12/17 18:37 02/12/17 18:37 Critical Care Time Critical Care Time: Yes Total Critical Care Time: 90 Critical Care Time: Diagnosis and treatment for COPD/respiratory failure, Bipap, multiple EKGs, treatment of possible CAP. Disposition Disposition: Transfer Clinical Impression: COPD exacerbation, Hypoxia Respiratory failure Qualifiers: Chronicity: acute Respiratory failure complication: hypoxia Qualified Code(s): J96.01 - Acute respiratory failure with hypoxia Disposition: Acute Care Hospital Transfer Transfer To: [facility] Reason For Transfer: Respiratory Failure, ICU Accepting Physician: Antonio Time Discussed w/Accepting Physician: 19:44 Condition: (2) Stable Forms: Patient Portal Access Time of Disposition: 19:44
[2017-02-12] MEDS ORDERED: 0.9 % SODIUM CHLORIDE 1000ML 500 ML IV SCH (18:30)
[2017-02-12 18:46] LABS: HEMATOCRIT 48.6 % (42.0-52.0); HEMOGLOBIN 16.2 gm/dl (14.0-18.0); MEAN CELL VOLUME 97.2 fl (81-97); MEAN CORPUSCULAR HEMOGLOBIN 32.4 pg (27-33); MEAN CORPUSCULAR HGB CONC 33.3 g/dl (32-36); MEAN PLATELET VOLUME 10.9 fl (7.4-10.4); PLATELET COUNT 210 K/uL (130-400); RED CELL DISTRIBUTION WIDTH 14.6 % (11.5-14.5); WHITE BLOOD COUNT W/O DIFF 12.2 K/uL (4.2-12.2)
[2017-02-12 18:56] LABS: PLATELET ESTIMATE NORMAL (NORMAL)
[2017-02-12 19:03] LABS: ALB/GLOB RATIO 1.4 (1.1-1.8); ALBUMIN 4.6 gm/dL (3.5-5.0); ALKALINE PHOSPHATASE 68 U/L (38-126); ALT/SGPT 54 U/L (21-72); ANION GAP 11.4 (7-16); AST/SGOT 65 U/L (17-59); BILIRUBIN,TOTAL 0.91 mg/dL (0.2-1.3); BLOOD UREA NITROGEN 15 mg/dL (9-20); CARBON DIOXIDE 29.6 mmol/L (22-30); CREATININE 0.9 mg/dL (0.66-1.25); EST GLOMERULAR FILTRATION RATE > 60 ml/min; GLUCOSE,RANDOM 114 mg/dL (70-110); TOTAL PROTEIN 7.8 gm/dL (6.3-8.2)
[2017-02-12] MEDS ORDERED: LORAZEPAM 2 MG/ML VIAL IV ONE (19:22)
[2017-02-12] MEDS ORDERED: ALBUTEROL SULFATE (0.083%) 2.5 MG/3 ML NEB INH ONE (19:32)
[2017-02-12] MEDS ORDERED: AZITHROMYCIN 500 MG in 0.9 % SODIUM CHLORIDE 250ML 250 ML IVPB ONE (19:52)
== END 2017-02-12 20:13 | disposition short-term general hospital (02) ==
LOC: ER 18:10
DX: J96.01 Acute respiratory failure with hypoxia (principal); J44.1 Chronic obstructive pulmonary disease with (acute) exacerbation; I50.9 Heart failure, unspecified; I10 Essential (primary) hypertension; I48.91 Unspecified atrial fibrillation; Z79.01 Long term (current) use of anticoagulants; Z87.891 Personal history of nicotine dependence; Z95.0 Presence of cardiac pacemaker; Z79.899 Other long term (current) drug therapy
CPT/HCPCS: 99291 ×2; 96374; 96375; 84484; 80053; 80162; 85027; 71010; 94640 ×2; 94660; 93005; 93010; J2060; J0456; J2930; J7050; J7613

== ENCOUNTER 2017-04-12 16:19 | Emergency (ER) | payer MEDICARE ==
[2017-04-12] MEDS ORDERED: Diph,Pert(Acell),Tet Vac 0.5 ML SYR IM ONE (16:29)
[2017-04-12] MEDS ORDERED: CEPHALEXIN 500 MG CAPSULE PO STA (16:29)
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
== END 2017-04-12 17:21 | disposition home or self-care (01) ==
LOC: ER 16:19
DX: S81.811A Laceration without foreign body, right lower leg, initial encounter (principal); W45.8XXA Other foreign body or object entering through skin, initial encounter; Y92.007 Garden or yard of unspecified non-institutional (private) residence as the place of occurrence of the external cause
CPT/HCPCS: 12004; 90715; 96372; 99283